=== PATIENT | female | born 1950 | race Caucasian/White ===

== ENCOUNTER 2018-03-15 08:43 | Outpatient (CLI) | payer OTHER ==
[2018-03-15 09:14] LABS: INR 2.3 (0.8-1.2)
== END 2018-03-15 08:44 | disposition home or self-care (01) ==
LOC: LAB 08:43
PROVIDERS: ATTEND Internal Medicine Hematology & Oncology
DX: Z79.01 Long term (current) use of anticoagulants (principal); D68.59 Other primary thrombophilia; I48.91 Unspecified atrial fibrillation
CPT/HCPCS: 36415; 85610

== ENCOUNTER 2018-05-05 15:18 | Outpatient (CLI) | payer OTHER ==
[2018-05-05 18:23] LABS: INR 3.2 (0.8-1.2); PT - PROTHROMBIN TIME 35.5 secs (9.9-12.6)
== END 2018-05-05 15:19 | disposition home or self-care (01) ==
LOC: LAB.F 15:18
PROVIDERS: ATTEND Internal Medicine Hematology & Oncology
DX: Z79.01 Long term (current) use of anticoagulants (principal); D68.59 Other primary thrombophilia; I48.91 Unspecified atrial fibrillation
CPT/HCPCS: 36415; 85610

== ENCOUNTER 2019-03-17 12:15 | Outpatient (CLI) | payer OTHER ==
[2019-03-17 12:37] LABS: INR 2.6 (0.8-1.2)
[2019-03-17 12:47] LABS: BILIRUBIN,URINE NEGATIVE (NEGATIVE); GLUCOSE, URINE (UA) NEGATIVE (NEGATIVE); KETONES,URINE (UA) NEGATIVE (NEGATIVE); LEUKOCYTE ESTERASE, URINE TRACE (NEGATIVE); NITRITE,URINE NEGATIVE (NEGATIVE); OCCULT BLOOD,URINE LARGE (NEGATIVE); PH,URINE 5.5 PH (5.0-7.5); PROTEIN,URINE 100 mg/dL (NEGATIVE); UROBILINOGEN,URINE 0.2 (NORMAL) E.U./dL (NORMAL)
[2019-03-17 13:06] LABS: CLARITY,URINE HAZY (CLEAR)
[2019-03-17 13:07] LABS: BACTERIA,URINE Rare /HPF (None Seen); RBC,URINE TNTC /HPF (0-5); SQUAMOUS EPITHELIAL CELL,UR RARE Squamous (<= Few)
== END 2019-03-17 12:16 | disposition home or self-care (01) ==
LOC: LAB 12:15
PROVIDERS: ATTEND Internal Medicine Hematology & Oncology
DX: Z79.01 Long term (current) use of anticoagulants (principal); D68.59 Other primary thrombophilia
CPT/HCPCS: 36415; 81001; 81003; 85610; 87086

== ENCOUNTER 2019-04-14 12:52 | Outpatient (CLI) | payer MEDICARE | END 2019-04-14 12:53 | disposition home or self-care (01) | LOC: LAB.S 12:52 | PROVIDERS: ATTEND Family Medicine | DX: D68.59 Other primary thrombophilia (principal) | CPT/HCPCS: 36415; 85610 ==

== ENCOUNTER 2021-02-26 08:00 | Outpatient (CLI) | payer OTHER ==
[2021-02-26 15:12] LABS: BILIRUBIN,URINE NEGATIVE (NEGATIVE); GLUCOSE, URINE (UA) NEGATIVE (NEGATIVE); KETONES,URINE (UA) NEGATIVE (NEGATIVE); LEUKOCYTE ESTERASE, URINE TRACE (NEGATIVE); NITRITE,URINE NEGATIVE (NEGATIVE); OCCULT BLOOD,URINE NEGATIVE (NEGATIVE); PROTEIN,URINE NEGATIVE (NEGATIVE); UROBILINOGEN,URINE 0.2 (NORMAL) E.U./dL (NORMAL)
[2021-02-26 15:14] LABS: CLARITY,URINE CLEAR (CLEAR)
[2021-02-26 15:31] LABS: BACTERIA,URINE Rare /HPF (None Seen); EPITHELIAL CELLS,UR RARE Transitional /HPF (<= Few); RBC,URINE None Seen /HPF (0-5); SQUAMOUS EPITHELIAL CELL,UR RARE Squamous (<= Few); WBC,URINE 0-3 /HPF (0-5)
== END 2021-02-26 23:59 ==
LOC: LAB.S 08:00
PROVIDERS: ATTEND Emergency Medicine
DX: N39.0 Urinary tract infection, site not specified (principal)
CPT/HCPCS: 81001; 87086

== ENCOUNTER 2021-03-05 08:00 | Outpatient (CLI) | payer MEDICARE, OTHER ==
[2021-03-05 20:21] LABS: BILIRUBIN,URINE NEGATIVE (NEGATIVE); GLUCOSE, URINE (UA) NEGATIVE (NEGATIVE); KETONES,URINE (UA) NEGATIVE (NEGATIVE); LEUKOCYTE ESTERASE, URINE NEGATIVE (NEGATIVE); NITRITE,URINE NEGATIVE (NEGATIVE); OCCULT BLOOD,URINE NEGATIVE (NEGATIVE); PROTEIN,URINE NEGATIVE (NEGATIVE); UROBILINOGEN,URINE 0.2 (NORMAL) E.U./dL (NORMAL)
[2021-03-05 20:40] LABS: CLARITY,URINE CLEAR (CLEAR)
[2021-03-05 21:22] LABS: BACTERIA,URINE Rare /HPF (None Seen); EPITHELIAL CELLS,UR FEW Transitional /HPF (<= Few); RBC,URINE 0-5 /HPF (0-5); SQUAMOUS EPITHELIAL CELL,UR FEW Squamous (<= Few); WBC,URINE 0-3 /HPF (0-5)
== END 2021-03-05 23:59 | disposition home or self-care (01) ==
LOC: LAB.S 08:00
PROVIDERS: ATTEND Emergency Medicine
DX: R30.0 Dysuria (principal); N39.0 Urinary tract infection, site not specified
CPT/HCPCS: 81001; 87086

== ENCOUNTER 2021-03-20 15:26 | Outpatient (CLI) | payer MEDICARE, OTHER ==
[2021-03-20 20:07] LABS: INR 2.7 (0.8-1.2); PT - PROTHROMBIN TIME 29.5 secs (9.9-12.6)
== END 2021-03-20 15:27 | disposition home or self-care (01) ==
LOC: LAB.S 15:26
PROVIDERS: ATTEND Internal Medicine Hematology & Oncology
DX: D68.59 Other primary thrombophilia (principal)
CPT/HCPCS: 36415; 85610

== ENCOUNTER 2021-06-03 11:08 | Outpatient (CLI) | payer MEDICARE, OTHER ==
[2021-06-03 11:31] LABS: BASOPHILS % (AUTO) 0.8 %; EOSINOPHILS # (AUTO) 0.2 10^3/uL (0.0-0.7); EOSINOPHILS % (AUTO) 4.6 %; HCT - HEMATOCRIT 40.8 % (37.0-47.0); HGB - HEMOGLOBIN 14.4 g/dL (12.0-16.0); LYMPHOCYTES # (AUTO) 1.1 10^3/uL (1.5-3.5); LYMPHOCYTES % (AUTO) 29.3 %; MEAN CORPUSCULAR HEMOGLOBIN 31.9 pg (27.0-31.0); MEAN CORPUSCULAR HGB CONC 35.3 g/dL (32.0-36.0); MEAN CORPUSCULAR VOLUME 90.3 fL (81.0-99.0); MONOCYTES # (AUTO) 0.2 10^3/uL (0.0-1.0); MONOCYTES % (AUTO) 6.2 %; NEUTROPHILS # (AUTO) 2.2 10^3/uL (1.5-6.6); NEUTROPHILS % (AUTO) 58.8 %; PLT - PLATELET COUNT 154 10^3/uL (130-450); RED BLOOD COUNT 4.52 10^6/uL (4.20-5.40); RED CELL DISTRIBUTION WIDTH 11.7 % (12.0-15.0); WHITE BLOOD COUNT 3.7 x10^3/uL (4.8-10.8)
[2021-06-03 11:37] LABS: INR 2.6 (0.8-1.2); PT - PROTHROMBIN TIME 28.8 secs (9.9-12.6)
== END 2021-06-03 11:09 | disposition home or self-care (01) ==
LOC: LAB 11:08
PROVIDERS: ATTEND Internal Medicine Hematology & Oncology
DX: D68.59 Other primary thrombophilia (principal); D70.9 Neutropenia, unspecified
CPT/HCPCS: 36415; 85025; 85610

== ENCOUNTER 2022-08-20 14:53 | Emergency (ER) | payer MEDICARE, OTHER ==
[2022-08-20 15:27] LABS: BASOPHILS % (AUTO) 0.7 %; EOSINOPHILS # (AUTO) 0.1 10^3/uL (0.0-0.7); EOSINOPHILS % (AUTO) 3.1 %; HCT - HEMATOCRIT 43.2 % (37.0-47.0); HGB - HEMOGLOBIN 14.8 g/dL (12.0-16.0); LYMPHOCYTES # (AUTO) 1.3 10^3/uL (1.5-3.5); LYMPHOCYTES % (AUTO) 27.3 %; MEAN CORPUSCULAR HEMOGLOBIN 30.9 pg (27.0-31.0); MEAN CORPUSCULAR HGB CONC 34.3 g/dL (32.0-36.0); MEAN CORPUSCULAR VOLUME 90.2 fL (81.0-99.0); MEAN PLATELET VOLUME 10.7 fL (7.9-10.8); MONOCYTES # (AUTO) 0.3 10^3/uL (0.0-1.0); MONOCYTES % (AUTO) 6.6 %; NEUTROPHILS # (AUTO) 2.9 10^3/uL (1.5-6.6); NEUTROPHILS % (AUTO) 62.3 %; PLT - PLATELET COUNT 160 10^3/uL (130-450); RED BLOOD COUNT 4.79 10^6/uL (4.20-5.40); RED CELL DISTRIBUTION WIDTH 11.3 % (12.0-15.0); WHITE BLOOD COUNT 4.6 x10^3/uL (4.8-10.8)
--- NOTE | 2022-08-20 15:28 | ED Physician Documentation ---
History of Present Illness - Stated complaint Stated Complaint: SENT BY PCP HEART PX - Chief complaint Chief Complaint: Cardiac - Additonal information Additional information: 71-year-old female presents to the emergency department for evaluation of chest pain. Reports that several times a day over the last week she has had brief sharp left-sided chest pain in various areas of the chest. Occasionally she has had some belching associated with it. No history of similar. Chest pain is not pleuritic. Not exertional. The patient does take Coumadin for a clotting disorder. She has been on this medication for about 5 years but is unsure what clotting disorder she has. She reports compliance with Coumadin. Review of Systems Constitutional: reports: Reviewed and negative Throat: reports: Reviewed and negative Cardiac: reports: Chest pain / pressure. denies: Palpitations, Pedal edema, Calf pain Respiratory: reports: Reviewed and negative GI: reports: Reviewed and negative : reports: Reviewed and negative Skin: reports: Reviewed and negative PD PAST MEDICAL HISTORY - Present Medications Home Medications: Ambulatory Orders Medication Instructions Recorded Confirmed Warfarin [Coumadin] 6 mg PO DAILY 08/20/22 08/20/22 - Allergies Allergies/Adverse Reactions: Allergies Allergy/AdvReac Type Severity Reaction Status Date / Time codeine Allergy Nausea Verified 08/20/22 15:08 erythromycin base Allergy Nausea Verified 08/20/22 15:08 [From Erythrocin] [id number] Reductase Allergy Unknown Verified 08/20/22 15:08 Inhibitor Sulfa (Sulfonamide Allergy Nausea Verified 08/20/22 15:08 Antibiotics) PD ED PE NORMAL - General General: Alert and oriented X 3, No acute distress, Well developed/nourished - HEENT HEENT: Atraumatic, Moist mucous membranes - Neck Neck: Supple, no meningeal sign - Cardiac Cardiac: RRR, No murmur, No gallop - Respiratory Respiratory: No respiratory distress, Clear bilaterally - Abdomen Abdomen: Normal bowel sounds, Soft, Non tender, Non distended - Back Back: No CVA TTP - Derm Derm: Normal color - Extremities Extremities: No deformity - Neuro Neuro: Alert and oriented X 3, inspector assembly 2-12 intact Eye Opening: Spontaneous Motor: Obeys Commands Verbal: Oriented GCS Score: 15 Results - Vitals Vitals: Vital Signs - 24 hr 08/20/22 15:08 Temperature 36.5 C Heart Rate 90 Respiratory 16 Rate Blood Pressure 120/60 O2 Saturation 94 Oxygen O2 Source Room air - EKG (time done) 1524 EKG releavant findings:: EKG personally interpreted by author of this note. Relevant findings are: Rate: Rate (enter#) (54) Rhythm: NSR [place]: LAD Intervals: Normal [place]. No: Prolonged QT QRS: Normal Ischemia: Non specific changes Compare to prior EKG: Old EKG unavailable Computer interpretation: Agree with computer - Labs Labs: Laboratory Tests 08/20/22 08/20/22 08/20/22 15:22 15:22 15:22 WBC 4.6 L RBC 4.79 Hgb 14.8 Hct 43.2 MCV 90.2 MCH 30.9 MCHC 34.3 RDW 11.3 L Plt Count 160 MPV 10.7 Neut # (Auto) 2.9 Lymph # (Auto) 1.3 L [place] # (Auto) 0.3 Eos # (Auto) 0.1 Baso # (Auto) 0.0 Absolute Nucleated RBC 0.00 Nucleated RBC % 0.0 PT INR Sodium 138 Potassium 3.4 L Chloride 104 Carbon Dioxide 26 Anion Gap 8.0 BUN 11 Creatinine 0.7 Estimated GFR (MDRD) 83 L Glucose 93 Calcium 9.4 Total Bilirubin 0.9 AST 27 ALT 21 Alkaline Phosphatase 66 Troponin I High Sens < 2.3 L B-Natriuretic Peptide Total Protein 7.0 Albumin 4.1 Globulin 2.9 Albumin/Globulin Ratio 1.4 Lipase 35 08/20/22 08/20/22 15:22 15:22 WBC RBC Hgb Hct MCV MCH MCHC RDW Plt Count MPV Neut # (Auto) Lymph # (Auto) [place] # (Auto) Eos # (Auto) Baso # (Auto) Absolute Nucleated RBC Nucleated RBC % PT 31.7 H INR 3.0 H Sodium Potassium Chloride Carbon Dioxide Anion Gap BUN Creatinine Estimated GFR (MDRD) Glucose Calcium Total Bilirubin AST ALT Alkaline Phosphatase Troponin I High Sens B-Natriuretic Peptide 40 Total Protein Albumin Globulin Albumin/Globulin Ratio Lipase - Rads (name of study) cxr Relevant Findings:: EMP independent interpretation of test PD Medical Decision Making - ED course Complexity details: reviewed results, re-evaluated patient, d/w patient ED course: 71-year-old female presents emergency department for evaluation of chest pain that she has had very briefly over the last week. Not exertional. She describes sharp episodes that lasts just a few seconds before abating. No fevers, no cough. No falls or trauma. She is not a smoker and has no history of diabetes or hypertension. She does take Coumadin for a clotting disorder for which she is not know the name of. Here in the ER an EKG was obtained which shows sinus rhythm. No ischemic changes per my interpretation. I did obtain CBC, electrolytes high-sensitivity troponin and BNP. These were all essentially negative. Her INR today is 3.0 which would be therapeutic given the history of a clotting disorder. Chest x- ray did not show any findings of pneumonia pleural effusion or pneumothorax. This time the etiology of her chest pain is not clear though given her age I recommended close follow-up with PCP. She benefit from an outpatient echo and/or stress test. Patient does have a heart score of 2 putting her at low risk for MACE. The usual emergent return precautions for worsening symptoms was discussed. Departure - Departure Disposition: 01 Home, Self Care Clinical Impression: Atypical chest pain Condition: Stable Record reviewed to determine appropriate education?: Yes Instructions: ED Chest Pain Atypical Unkn Cause Comments: Eva was seen today in the emergency department for some intermittent chest pain that you have had over the last several days. Your EKG did not show signs that you are having a heart attack. Your chest x-ray showed no signs of pneumonia pneumothorax or pleural effusion. Your labs today were also essentially normal. Your INR today was 3. It is not clear to us at this time what the cause of your chest pain is though I do recommend you follow closely with your doctors at [facility]. You should be referred for a stress test and/or an echocardiogram for further evaluation of your chest pain. Return immediately to the ER if you have any fainting episodes, develop chest pain that is worse with ambulation, or severely nauseated or have uncontrolled abdominal pain vomiting or severe shortness of air
[2022-08-20 15:41] LABS: ALBUMIN 4.1 g/dL (3.2-5.5); ALBUMIN/GLOBULIN RATIO 1.4 (1.0-2.2); BILIRUBIN,TOTAL 0.9 mg/dL (0.2-1.0); CALCIUM 9.4 mg/dL (8.5-10.3); CREATININE 0.7 mg/dL (0.4-1.0); POTASSIUM 3.4 mmol/L (3.5-5.0)
[2022-08-20 15:48] LABS: PT - PROTHROMBIN TIME 31.7 secs (9.9-12.6)
--- NOTE | 2022-08-20 16:09 | XRAY Report ---
PROCEDURE: Chest 1 View X-Ray INDICATIONS: Chest Pain TECHNIQUE: One view of the chest was acquired. COMPARISON: None. FINDINGS: Surgical changes and devices: None. Lungs and pleura: No pleural effusions or pneumothorax. Lungs are clear. Mediastinum: Mediastinal contours appear normal. Heart size is normal. Bones and chest wall: No suspicious bony lesions. Overlying soft tissues appear unremarkable. IMPRESSION: No acute cardiopulmonary process. No focal consolidation. Reviewed by: Kike Ahmadi MD on 08/20/2022 4:08 PM PDT Approved by: Kike Ahmadi MD on 08/20/2022 4:08 PM PDT Station ID: [id number]
[2022-08-20 16:15] VITALS: BP 118/81
== END 2022-08-20 16:17 | disposition home or self-care (01) ==
LOC: ED 14:53
DX: R07.89 Other chest pain (principal); Z79.01 Long term (current) use of anticoagulants
CPT/HCPCS: 36415; 80053; 83690; 83880; 84484; 85025; 85610; 93005; 99283; 99284

== ENCOUNTER 2022-11-12 14:13 | Emergency (ER) | payer MEDICARE ==
--- NOTE | 2022-11-12 15:06 | ED Physician Documentation ---
PD HPI CHEST PAIN - Stated complaint Stated Complaint: CHEST PX - Chief complaint Chief Complaint: Cardiac - History obtained from History obtained from: Patient - History of Present Illness Timing - onset: Yesterday Pain level max: 3 Pain level now: 0 Quality: Pressure Location: Left chest Radiation: No: Jaw, Neck, Back, Abdominal, Left upper extremity, Right upper extremity Improved by: Nothing Worsened by: Palpation. No: Exertion, Inspiration, Eating, Movement, Position Associated symptoms: No: Shortness of air, Diaphoresis, Nausea, Vomiting, Feeling faint / dizzy, General Weakness, Palpitations, Cough - Additional information Additional information: Patient is a 71-year-old female who presents to the emergency department complaining of left-sided chest pressure for the past 48 hours. She states that last for a few minutes to a few hours at a time. She states she only really notices it when she presses on the left side of her chest and feels pain. No change with exertion, inspiration. No change with eating or drinking. Does not have any history of heart problems in the past. She states her only medication is warfarin for a blood clot in her leg many years ago. Denies any cardiac history in the past. No nausea or vomiting. No diaphoresis. No dyspnea. No dizziness. Review of Systems Constitutional: denies: Fever, Chills Nose: denies: Rhinorrhea / runny nose, Congestion Cardiac: denies: Palpitations Respiratory: denies: Cough GI: denies: Vomiting, Diarrhea Musculoskeletal: denies: Neck pain, Back pain Neurologic: denies: Headache PD PAST MEDICAL HISTORY - Past Medical History Past Medical History: Yes Other Past Medical History: DVT - Present Medications Home Medications: Ambulatory Orders Medication Instructions Recorded Confirmed Warfarin [Coumadin] 6 mg PO DAILY 08/20/22 08/20/22 - Allergies Allergies/Adverse Reactions: Allergies Allergy/AdvReac Type Severity Reaction Status Date / Time codeine Allergy Nausea Verified 11/12/22 14:35 erythromycin base Allergy Nausea Verified 11/12/22 14:35 [From Erythrocin] [id number] Reductase Allergy Unknown Verified 11/12/22 14:35 Inhibitor Sulfa (Sulfonamide Allergy Nausea Verified 11/12/22 14:35 Antibiotics) - Living Situation Living Arrangement: reports: At home - Social History Does the pt smoke?: No Does the pt have substance abuse?: No - Family History Family history: reports: Non contributory PD ED PE NORMAL - Vitals Vital signs reviewed: Yes - General General: Alert and oriented X 3, No acute distress - HEENT HEENT: PERRL, Moist mucous membranes - Neck Neck: Supple, no meningeal sign - Cardiac Cardiac: RRR, No murmur, Strong equal pulses, Other (Tender to palpation over the left upper chest wall, reproduces her symptoms) - Respiratory Respiratory: No respiratory distress, Clear bilaterally - Abdomen Abdomen: Normal bowel sounds, Soft, Non tender, Non distended - Derm Derm: Warm and dry, No rash - Extremities Extremities: No edema, No calf tenderness / cord - Neuro Neuro: Alert and oriented X 3 - Psych Psych: Normal mood, Normal affect Results - Vitals Vitals: Vital Signs - 24 hr 11/12/22 11/12/22 11/12/22 14:25 14:48 16:53 Temperature 36.3 C L Heart Rate 71 63 76 Respiratory 18 18 17 Rate Blood Pressure 108/78 103/88 H 108/82 H O2 Saturation 98 100 99 Oxygen O2 Source Room air - EKG (time done) 1439 EKG releavant findings:: EKG personally interpreted by author of this note. Relevant findings are: Rate: Rate (enter#) (66) Rhythm: NSR [place]: Anterior hemiblock (LAFB) Intervals: Normal [place] QRS: Normal Ischemia: ST elevation c/w ischemia - Labs Labs: Laboratory Tests 11/12/22 11/12/22 11/12/22 15:18 15:18 15:18 WBC 4.1 L RBC 4.56 Hgb 14.3 Hct 40.5 MCV 88.8 MCH 31.4 H MCHC 35.3 RDW 11.2 L Plt Count 161 MPV 10.8 Neut # (Auto) 2.6 Lymph # (Auto) 1.1 L [place] # (Auto) 0.2 Eos # (Auto) 0.1 Baso # (Auto) 0.0 Absolute Nucleated RBC 0.00 Nucleated RBC % 0.0 PT 20.0 H INR 1.9 H Sodium 141 Potassium 3.7 Chloride 107 Carbon Dioxide 31 Anion Gap 3.0 L BUN 11 Creatinine 0.7 Estimated GFR (MDRD) 83 L Glucose 91 Calcium 10.0 Total Bilirubin 0.7 AST 22 ALT 17 Alkaline Phosphatase 82 Troponin I High Sens < 2.3 L Total Protein 6.3 L Albumin 4.1 Globulin 2.2 Albumin/Globulin Ratio 1.9 Lipase 21 - Rads (name of study) Chest x-ray Relevant Findings:: Final report received, See rad report PD Medical Decision Making - ED course Complexity details: reviewed results, re-evaluated patient, considered differential (No ST elevation RI, no aortic dissection, no PE, no tension pneumothorax, no aortic aneurysm), d/w patient ED course: 71-year-old female with atypical chest pain. Tender to palpation over the left chest wall. The pain is only when she is pressing on her chest. No evidence of PE, ACS, aortic dissection. She declines anything here for pain. Ambulating without difficulty. No other significant lab abnormalities, EKG abnormalities or chest x-ray abnormalities. Patient counseled regarding signs and symptoms for which I believe and urgent re-evaluation would be necessary. Patient with good understanding of and agreement to plan and is comfortable going home at this time This document was made in part using voice recognition software. While efforts are made to proofread this document, sound alike and grammatical errors may occur. Departure - Departure Disposition: 01 Home, Self Care Clinical Impression: Chest wall pain Condition: Good Instructions: ED Chest Pain Atypical Unkn Cause Follow-Up: GARIMA DOHERTY MD [Primary Care Provider] - Comments: Follow up with your doctor for further care. Your chest xray and labs do not show any acute abnormalities today. Return if you worsen. Forms: PCP List Discharge Date/Time: 11/12/22 16:54
[2022-11-12 15:24] LABS: BASOPHILS % (AUTO) 0.7 %; EOSINOPHILS # (AUTO) 0.1 10^3/uL (0.0-0.7); EOSINOPHILS % (AUTO) 3.2 %; HCT - HEMATOCRIT 40.5 % (37.0-47.0); HGB - HEMOGLOBIN 14.3 g/dL (12.0-16.0); LYMPHOCYTES # (AUTO) 1.1 10^3/uL (1.5-3.5); LYMPHOCYTES % (AUTO) 26.6 %; MEAN CORPUSCULAR HEMOGLOBIN 31.4 pg (27.0-31.0); MEAN CORPUSCULAR HGB CONC 35.3 g/dL (32.0-36.0); MEAN CORPUSCULAR VOLUME 88.8 fL (81.0-99.0); MEAN PLATELET VOLUME 10.8 fL (7.9-10.8); MONOCYTES # (AUTO) 0.2 10^3/uL (0.0-1.0); MONOCYTES % (AUTO) 5.9 %; NEUTROPHILS # (AUTO) 2.6 10^3/uL (1.5-6.6); NEUTROPHILS % (AUTO) 63.4 %; PLT - PLATELET COUNT 161 10^3/uL (130-450); RED BLOOD COUNT 4.56 10^6/uL (4.20-5.40); RED CELL DISTRIBUTION WIDTH 11.2 % (12.0-15.0); WHITE BLOOD COUNT 4.1 x10^3/uL (4.8-10.8)
--- NOTE | 2022-11-12 15:26 | XRAY Report ---
PROCEDURE: Chest 1 View X-Ray INDICATIONS: Chest Pain TECHNIQUE: One view of the chest was acquired. COMPARISON: None. FINDINGS: Surgical changes and devices: None. Lungs and pleura: No pleural effusions or pneumothorax. Lungs are clear. Mediastinum: Mediastinal contours appear normal. Heart size is normal. Bones and chest wall: No suspicious bony lesions. Overlying soft tissues appear unremarkable. IMPRESSION: No acute cardiopulmonary process. Reviewed by: Jaime Girard MD on 11/12/2022 3:25 PM PDT Approved by: Jaime Girard MD on 11/12/2022 3:25 PM PDT Station ID: [id number]
[2022-11-12 15:39] LABS: ALBUMIN 4.1 g/dL (3.2-5.5); ALBUMIN/GLOBULIN RATIO 1.9 (1.0-2.2); ALKALINE PHOSPHATASE 82 IU/L (42-121); ALT ALANINE AMINOTRANSFERASE 17 IU/L (10-60); AST ASPARTATE AMINOTRANSFERASE 22 IU/L (10-42); BILIRUBIN,TOTAL 0.7 mg/dL (0.2-1.0); BUN - BLOOD UREA NITROGEN 11 mg/dL (6-20); CARBON DIOXIDE - CO2 31 mmol/L (21-32); CHLORIDE 107 mmol/L (101-111); CREATININE 0.7 mg/dL (0.6-1.3); GFR - MDRD 83 (>89); GLUCOSE 91 mg/dL (74-104); LIPASE 21 U/L (11-82); POTASSIUM 3.7 mmol/L (3.5-4.5); SODIUM 141 mmol/L (135-145); TOTAL PROTEIN 6.3 g/dL (6.4-8.9)
[2022-11-12 15:44] LABS: TROPONIN I HIGH SENSITIVITY < 2.3 ng/L (2.3-14.8)
[2022-11-12 15:52] LABS: INR 1.9 (0.8-1.2)
[2022-11-12 17:03] VITALS: BP 108/82; O2SAT 99
== END 2022-11-12 16:54 | disposition home or self-care (01) ==
LOC: ED 14:13
DX: R07.89 Other chest pain (principal)
CPT/HCPCS: 36415; 80053; 83690; 84484; 85025; 85610; 93005; 99283; 99284